=== PATIENT | male | born 1985 | race Caucasian/White ===

== ENCOUNTER 2017-10-17 18:19 | Emergency (ER) | payer SELFPAY, MEDICAID ==
[2017-10-17] MEDS: IBUPROFEN 600 MG TAB PO (19:18)
[2017-10-17] MEDS: ACETAMINOPHEN 325 MG TAB PO (19:18)
[2017-10-17] MEDS: CEFTRIAXONE 1 GM INJ IM (20:11)
== END 2017-10-17 20:30 | disposition home or self-care (01) ==
LOC: FTE 18:19
DX: J18.9 Pneumonia, unspecified organism (principal); T88.3XXA Malignant hyperthermia due to anesthesia, initial encounter; T41.3X5A Adverse effect of local anesthetics, initial encounter; Y82.8 Other medical devices associated with adverse incidents
CPT/HCPCS: 71045; 96372; 99284-25